=== PATIENT | male | born 1950 | race Caucasian/White ===

== ENCOUNTER 2016-06-11 08:50 | Emergency (ER) | payer MEDICARE, BC ==
[2016-06-11 09:12] VITALS: BP 109/62
--- NOTE | 2016-06-11 09:52 | ER Document Report ---
ED Suture/Wound Recheck - General Chief Complaint: Suture Removal Stated Complaint: SUTURE REMOVAL Mode of Arrival: Ambulatory Information source: Patient TRAVEL OUTSIDE OF THE [place] IN LAST 30 DAYS: No - HPI Patient complains to provider of: Denies Treated in ED (days ago): 17 Previous ED treatment: Laceration repair Antibiotics given previously: IM Quality of pain: No pain Severity: Mild Pain Level: Denies Context: Injury Symptoms since procedure: No complaints. denies: Chills, Drainage, Fever, Pain , Red streaks Exacerbated by: Denies - Related Data Allergies/Adverse Reactions: No Known Allergies Allergy (Verified 06/11/16 09:12) Past Medical History - General Information source: Patient - Social History Smoking Status: Former Smoker Cigarette use (# per day): No Chew tobacco use (# tins/day): No Frequency of alcohol use: None Drug Abuse: None Family History: None Patient has suicidal ideation: No Patient has homicidal ideation: No - Past Medical History Cardiac Medical History: Reports: Hx Hypercholesterolemia, Hx Hypertension Endocrine Medical History: Reports: Hx Diabetes Mellitus Type 2 Review of Systems - Review of Systems Constitutional: No symptoms reported EENT: No symptoms reported Cardiovascular: No symptoms reported Gastrointestinal: No symptoms reported Genitourinary: No symptoms reported Male Genitourinary: No symptoms reported Musculoskeletal: No symptoms reported Skin: No symptoms reported Neurological/Psychological: No symptoms reported -: Yes All other systems reviewed and negative Physical Exam - Vital signs Vitals: Temp Pulse Resp BP Pulse Ox 98.1 F 108 H 24 H 109/62 86 L 06/11/16 09:10 06/11/16 09:10 06/11/16 09:10 06/11/16 09:10 06/11/16 09:10 - General General appearance: Appears well, Alert In distress: None - HEENT Head: Normocephalic, Atraumatic Eyes: Normal Conjunctiva: Normal Cornea: Normal Extraocular movements intact: Yes - Respiratory Respiratory status: No respiratory distress Chest status: Nontender - Cardiovascular Rhythm: Regular - Extremities General upper extremity: Normal inspection, Nontender, Other - hea;ling wound to right 4th digit Course - Re-evaluation Re-evalutation: 06/11/16 09:50 wound edges pink no drainage good adherance. nursing to remove sutures - Vital Signs Vital signs: Temp Pulse Resp BP Pulse Ox 98.1 F 108 H 24 H 109/62 86 L 06/11/16 09:10 06/11/16 09:10 06/11/16 09:10 06/11/16 09:10 06/11/16 09:10 Discharge - Discharge Clinical Impression: Visit for suture removal Condition: Good Disposition: HOME, SELF-CARE Instructions: Suture Removal Additional Instructions: follow up with private m.d. as needed
== END 2016-06-11 10:24 | disposition home or self-care (01) ==
LOC: ER 08:50
DX: S61.214D Laceration without foreign body of right ring finger without damage to nail, subsequent encounter (principal); X58.XXXD Exposure to other specified factors, subsequent encounter; E11.9 Type 2 diabetes mellitus without complications; I10 Essential (primary) hypertension; Z79.891 Long term (current) use of opiate analgesic